=== PATIENT | male | born 1930 | race Caucasian/White ===

== ENCOUNTER 2016-12-30 21:58 | Inpatient (IN) | payer OTHER ==
[~2016-12-30] VITALS: Ht 177.8 cm; Wt 69.8 kg
--- NOTE | 2016-12-30 22:33 | NUR ---
PT [facility], PT PLACED ON GURNEY WITH NO INCIDENT. PT BROUGHT IN FOR S/P FALL WITH SYNCOPE EPISODE, PT STS NO LOC. PT HAS NO OBVIOUS DEFORMITIES, BOTH LEGS ARE ARE EVEN WITH NO SHORTENING, PMSC'S ARE INTACT. PT IS A/O X 4 AND IS ABLE TO MAKE HIS NEEDS KN
[2016-12-30 23:05] LABS: BASOPHIL % 0.4 % (0-2)
[2016-12-30 23:14] LABS: CALCIUM 7.6 mg/dL (8.5-10.1); CARBON DIOXIDE 25.4 mmol/L (21-32); CHLORIDE SERUM 107 mmol/L (98-107); GLUCOSE SERUM 155 mg/dL (74-106); POTASSIUM SERUM 4.4 mmol/L (3.5-5.1); SODIUM SERUM 140 mmol/L (136-145)
[2016-12-30 23:18] LABS: PLATELET COUNT 126 x10^3mcL (130-400); RED CELL DISTRIBUTION WIDTH 15.1 % (11.5-14.5)
[2016-12-30 23:19] LABS: ALKALINE PHOSPHATASE 27 U/L (46-116); ALT/SGPT 15 U/L (16-63); AST/SGOT 15 U/L (15-37); BILIRUBIN TOTAL 0.3 mg/dL (0.20-1.00)
[2016-12-30 23:20] LABS: ALBUMIN 2.7 g/dL (3.4-5.0); TOTAL PROTEIN, SERUM 5.3 g/dL (6.4-8.2)
[2016-12-30 23:21] LABS: CHOLESTEROL 108 mg/dL (<200)
--- NOTE | 2016-12-30 23:35 | NUR ---
PT IN ED IN POSITION OF COMFORT, CONVERSING WITH FAMILY, SEEN SMILING. RESP E/U
--- NOTE | 2016-12-30 23:38 | NUR ---
MD AT BEDSIDE WITH PTS TO DISCUSS RESULTS
[2016-12-31] MEDS ORDERED: ATENOLOL25 MG PO (00:24)
[2016-12-31] MEDS ORDERED: DILANTIN100 MG PO (00:25)
[2016-12-31] MEDS ORDERED: NEU300 PO (00:28)
[2016-12-31] MEDS ORDERED: TERAZOSIN HCL2 MG PO (00:29)
[2016-12-31] MEDS ORDERED: SYNTHROID0.088 MG PO (00:29)
[2016-12-31] MEDS ORDERED: DITROPAN XL10 MG PO (00:30)
[2016-12-31] MEDS ORDERED: NOR10 PO (00:31)
[2016-12-31] MEDS ORDERED: PRAVASTATIN SOD40 M1 PO (00:31)
[2016-12-31] MEDS ORDERED: ZESTRIL20 MG PO (00:32)
[2016-12-31] MEDS ORDERED: ASPIR 8181 MG PO (00:33)
[2016-12-31] MEDS ORDERED: POTASSIUM CHLO20 ME1 PO (00:34)
[2016-12-31] MEDS ORDERED: FUROSEMIDE20 MG PO (00:35)
[2016-12-31] MEDS ORDERED: BACLOFEN10 MG PO (00:36)
[2016-12-31] MEDS ORDERED: ACYCLOVIR200 MG (00:37)
--- NOTE | 2016-12-31 00:38 | NUR ---
REPORT GIVEN TO BONIFACIO HDZ. ALL QUESTIONS AND AND CONCERNS ADDRESSED.
--- NOTE | 2016-12-31 01:03 | NUR ---
RECEIVED PT FROM ED VIA [facility], CAME IN DUE TO S/P FALL. AAOX4. DENIES HEADACHE/DIZZINESS. LEFT HAND FLOORPERSON IS STRONGER THAN THE RIGHT. NO FACIAL DROOP NOTED. NO SOB NOTED. DENIES CHEST PAIN/PRESSURE, NSR ON THE MONITOR. DENIES ABDOMINAL DISCOMFORT. C/O LEFT HIP PAIN ON MOVEMENT. W/ SCATTERED DARK DISCOLORATIONS ON BUE. SIDE RAILS UPX2. CALL LIGHT ON REACH. ENDORSED
[2016-12-31 01:12] VITALS: BP 122/48
[2016-12-31 01:16] VITALS: BP 122/48
[2016-12-31 01:21] VITALS: Ht 177.8 cm; Wt 69.8 kg
--- NOTE | 2016-12-31 01:40 | NUR ---
RECEIVED PT FROM ER VIA [facility] ACCOMPANIED WITH NURSE, EMT AND FAMILY MEMBERS, PT SEEN, ALERT AND ORIENTED, DENIES HEADACHE OR DIZZINESS, RT SIDE WEAKNESS DUE TO HISTORY OF STROKE, SZ PRECAUTION IN PLACE, BREATHING EVEN AND UNLABORED ON ROOM AIR, ON TELE#27 NSB WITH PAC'S, DENIES CHEST PAIN, PROTONIX GIVEN VIA IVP, IVF INFUSING WELL, PULSES PALPABLE, NO EDEMA NOTED, GENERALIZED WEAKNESS DUE TO S/P FALL AT HOME, PT USES WALKER AND CANE AT HOME, ABD SOFT AND FLAT WITH ACTIVE BS, NO BM AT THIS TIME, INCONTIENT AT TIMES, NO DISTRESS NOTED, WILL KEEP TO MONITOR.
[2016-12-31 02:21] LABS: MAGNESIUM 2.1 mg/dL (1.8-2.4); PHOSPHOROUS 3.1 mg/dL (2.5-4.9)
[2016-12-31 02:31] LABS: FREE T4 1.08 ng/dL (0.76-1.46); FREE THYROXINE INDEX 2.8 ug/dL (1.4-4.5); T4(THYROXINE) 7.6 ug/dL (4.7-13.3)
[2016-12-31 05:00] LABS: microscopic required? NO
[2016-12-31 05:26] LABS: UA SPECIFIC GRAVITY 1.015 (1.005-1.035)
[2016-12-31 05:27] LABS: urine erythrocyte NEGATIVE (NEGATIVE)
--- NOTE | 2016-12-31 06:05 | NUR ---
PT ASLEEP BUT EASILY AROUSABLE, SLEPT FAIRLY AFTER ADMIITED TO THE UNIT, IVF INFUSING WELL, DENIES ANY PAIN OR DISCOMFORT WHILE RESTING IN BED, CONDITION NO CHANGE, NO DISTRESS NOTED, WILL KEEP TO MONITOR.
[2016-12-31 06:15] VITALS: BP 99/41
[2016-12-31 07:53] VITALS: BP 117/48
[2016-12-31 08:17] LABS: CARBON DIOXIDE 27.7 mmol/L (21-32); CHLORIDE SERUM 111 mmol/L (98-107); CREATININE SERUM 0.9 mg/dL (0.7-1.3); GLUCOSE SERUM 87 mg/dL (74-106); POTASSIUM SERUM 4.9 mmol/L (3.5-5.1); SODIUM SERUM 140 mmol/L (136-145)
[2016-12-31 08:35] LABS: BASOPHIL % 0.4 % (0-2)
[2016-12-31 08:36] LABS: PLATELET COUNT 125 x10^3mcL (130-400); RED CELL DISTRIBUTION WIDTH 15.5 % (11.5-14.5)
[2016-12-31 08:38] LABS: T3 TOTAL 0.85 ng/mL
--- NOTE | 2016-12-31 08:55 | NUR ---
RECEIVED CALL FROM DR SAM TO OBTAIN CONSENT FOR EGD SCHEDULED FOR 12:45pm.
--- NOTE | 2016-12-31 09:05 | NUR ---
LITIGATION SERVICES MANAGER AT BEDSIDE FOR US CAROTID.
--- NOTE | 2016-12-31 09:15 | NUR ---
DR SUNG MADE AWARE OF BP MEDICATIONS DUE, NOTIFIED CURRENT BP 117/48 MAP 88 [address] TRAN TO HOLD LASIX, LISINOPRIL, AND ATENOLOL. CHELSEA TO GIVE AMLODIPINE. STUDENT NURSE AND INSTRUCTOR MADE AWARE, WILL PASS MEDS.
--- NOTE | 2016-12-31 09:55 | NUR ---
CONSENT OBTAINED FOR EGD. PREOP CHECKLIST DONE. PATIENT RESTING COMFORTABLY ON BED, NO DISTRESS NOTED.
--- NOTE | 2016-12-31 11:53 | NUR ---
[facility] WIPES PROVIDED AND PATIENT WIPED DOWN FOR PREOP.
--- NOTE | 2016-12-31 12:05 | NUR ---
PATIENT LEAVING UNIT VIA BED, SL. GOING DOWN FOR EGD PROCEDURE. NO SIGN OF DISTRESS.
--- NOTE | 2016-12-31 13:34 | NUR ---
PATIENT BACK FROM EGD, A/O AND RESPONSIVE. DENIES ANY SOB/PAIN/DISCOMFORT. PER REPORT, LENA TEST POSITIVE AND POSTOP DX GASTRIC ULCER. IV FLUIDS RESUMED TO RFA IV SITE WNL. VISITORS AT BEDSIDE. WILL CONT TO MONITOR.
[2016-12-31 16:57] VITALS: BP 116/47
--- NOTE | 2016-12-31 17:03 | NUR ---
PATIENT WITH VISITOR AT BEDSIDE. NO DISTRESS NOTED AND DENIES ANY ABD DISCOMFORT AT THIS TIME.
--- NOTE | 2016-12-31 19:30 | NUR ---
PT SEEN, RESTING IN BED, FAMILY AT BEDSIDE, ALERT AND ORIENTED, DENIES HEADACHE OR DIZZINESS, HX OF CVA AND SZ, RT SIDE WEAKNESS, SZ PRECAUTION IN PLACE, ON TELE#27 NSR, DENIES CHEST PAIN, IVF INFUSING WELL, PULSES PALPABLE, NO EDEMA NOTED, GENERALIZED WEAKNESS, S/P FALL AT HOME, C/O OF LEFT HIP PAIN WHILE WALKING AND MOVING, ABD SOFT AND FLAT WITH ACTIVE BS, NO BM AT THIS TIME, CLEAR LIQUID DIET TOLERATED WELL, NO N&V NOTED, VOIDING FREELY, DISCOLORATION TO BUE, BANDADIS TO LEFT KNEE DUE SCRATCHES S/P FALL, NO DISTRESS NOTED, WILL KEEP TO MONITOR.
[2016-12-31 21:48] VITALS: BP 122/50
--- NOTE | 2017-01-01 | NUR ---
PT HAD EPISODE OF INCONTIENT, BATH GIVEN.
--- NOTE | 2017-01-01 02:00 | NUR ---
ROUNDS MADE, PT ASLEEP BUT EASILY AROUSABLE, IVF INFUSING WELL, NO DISTRESS NOTED, WILL KEEP TO MONITOR.
--- NOTE | 2017-01-01 05:46 | NUR ---
PT ASLEEP BUT EASILY AROUSABLE, SLEPT MOST OF NIGHT, IVF INFUSING WELL, CLEAR LIQUID DIET TOLERATED WELL, EPISODES OF INCONTINENT, PT CHANGED AND CLEANED, CONDITION NO CHANGE, NO DISTRESS NOTED, WILL KEEP TO MONITOR.
[2017-01-01 06:23] VITALS: BP 111/47
--- NOTE | 2017-01-01 07:20 | NUR ---
PT RECEIVED. PATIENT IS AAOX3. CALM DEMEANOR. PATIENT HAS SOME RIGHT SIDED WEAKNESS DUE TO HX OF STROKE. NO FACIAL DROOP PRESENT. SEIZURE PRECAUTIONS DUE TO HX OF SEIZURES IN THE PAST. PATIENT IS ON CARDIAC TELE MONITOR 27. SCDS ARE IN PLACE. RESPIRATIONS ARE EVEN AND UNLABORED ON ROOM AIR. NO SOB IS PRESENT. BS ACTIVE. PT USES URINAL BUT IS OCCASIONALLY INCONTINENT AT TIMES. DENIES PAIN AT THIS TIME. DENIES N/V. IV INFUSING IN RFA AT 100ML/HR, WNL. CALL LIGHT WITHIN REACH. ALL SAFETY PRECAUTIONS IN PLACE.
[2017-01-01 07:36] LABS: BASOPHIL % 0.6 % (0-2)
[2017-01-01 07:38] LABS: PLATELET COUNT 123 x10^3mcL (130-400); RED CELL DISTRIBUTION WIDTH 15.5 % (11.5-14.5)
--- NOTE | 2017-01-01 08:50 | NUR ---
PT C/O SHAKING IN HIS RIGHT HAND AND STATES THAT HE IS HAVING DIFFICULTY RAISING HIS RIGHT LEG. PATIENT HAS FULL SENSATION IN BOTH RIGHT LEG AND RIGHT HAND. PULSES ARE WNL. PHYSICIAN NOTIFIED. WILL AWAIT NEW ORDERS.
[2017-01-01 10:12] VITALS: BP 122/40
--- NOTE | 2017-01-01 12:00 | NUR ---
PT IS CONCERNED ABOUT HIS INSURANCE COVERAGE FOR THE HOSPITAL STAY. PHYSICIAN HAS BEEN NOTIFIED. STATES THAT A MAGNET PLACER CONSULT WILL BE ORDERED. WILL MONITOR FOR NEW ORDERS. ALL SAFETY MEASURES IN PLACE. CALL LIGHT WITHIN REACH.
[2017-01-01 13:22] VITALS: BP 97/39
--- NOTE | 2017-01-01 15:00 | NUR ---
PT IS RESTING IN BED CURRENTLY. NO SIGNS OF ACUTE DISTRESS. RESPIRATIONS EVEN AND UNLABORED ON ROOM AIR. NO SOB NOTED. DENIES PAIN AT THIS TIME. PATIENT STATES THAT A [employer] EXCHANGE ADMINISTRATOR SPOKE TO HIM AND THAT HE IS SATISFIED AND THAT ALL OF HIS QUESTIONS HAVE BEEN ANSWERED. PATIENT DENIES ANY NEEDS AT THIS TIME. ALL SAFETY PRECAUTIONS IN PLACE. WILL CONTINUE TO MONITOR.
--- NOTE | 2017-01-01 16:19 | NUR ---
PHYSICAL THERAPY DAILY NOTES CO-SIGN All documentation done by the Donkey Doctor/student for 01/01/17 has been reviewed. I agree with the documentation. Reviewed/Co-Signed by: Jessica Obrien PT Documentation Done by:POLY ANDERSON SPTA POC REVIEWED W/ CONTACT FINGER ASSEMBLER,SPTA; WILL BENEFIT W/ P.T. AFTER ACUTE STAY PRIOR TO RETURNING HOME ALONE; EPISODES OF BALANCE DEFICIT DURING DYNAMIC ACTIVITY, ABLE TO REGAIN BALANCE W/ ASSIST, TENDS TO BE OVERCONFIDENT W/ CAPABILITIES, H/O FALLS; EMHASIS ON STRENGTHENING PROGRAM, SAFE GAIT PROGRESSION, FALL PREVENTION TECH; Pt STATES HE GOES TO GYM ([employer]) PRIOR TO THIS ADMISSION.
--- NOTE | 2017-01-01 18:05 | NUR ---
PT IS CURRENTLY RESTING IN BED AFTER EATING. APPETITE IS NORMAL, NO C/O ABD PAIN. AT THIS TIME THE PATIENT HAS NO SIGNS OF ACUTE DISTRESS. DENIES PAIN. RESPIRATIONS EVEN AND UNLABORED ON ROOM AIR. WILL CONTINUE TO MONITOR PATIENT AND ENDORSE AT SHIFT CHANGE.
[2017-01-01 18:26] VITALS: BP 103/46
--- NOTE | 2017-01-01 19:52 | NUR ---
REC'D PT FROM DAY NURSE. ROMEO PREC IN PLACE. AAOX4, SPEECH CLEAR, FOLLOWS COMMANDS, PERRLA. R SIDED WEAKNESS. NO SIGNS OF DISTRESS NOTED. BREATHING EVEN/UNLABORED ON RA. ON TELE 27. DENIES CP, DIZZINESS, OR PALPITATIONS. NO EDEMA NOTED. DENIES ABD PAIN, TENDERNESS, OR N/V. VOIDING FREELY. IN CONTINENT AT TIMES. C/O RLE "HARD" PAIN 11/09. WILL GIVE TYLENOL PER REQUEST. WEAKNESS TO RLE, UNABLE TO LIFT LEG. BUE ECCHYMOSIS. SMALL WOUND TO L KNEE WITH DRAINAGE TO BANDAIDSX2. REMOVED AND APPLIED ISLAND DRESSING. CALL LIGHT WITHIN REACH, BED AT LOWEST POSITION. WILL CONTINUE TO MONITOR.
[2017-01-01 21:40] VITALS: BP 100/48
--- NOTE | 2017-01-02 02:13 | NUR ---
PT RESTING IN BED WITH EYES CLOSED. LAYING SUPINE IN LOW JEAN BAPTISTE'S POSITION. NO SIGNS OF DISTRESS NOTED. BREATHING EVEN/UNLABORED ON RA. CALL LIGHT WITHIN REACH, BED AT LOWEST POSITION. WILL CONTINUE TO MONITOR.
[2017-01-02 06:12] LABS: CALCIUM 7.9 mg/dL (8.5-10.1); CARBON DIOXIDE 28.6 mmol/L (21-32); CHLORIDE SERUM 114 mmol/L (98-107); CREATININE SERUM 0.9 mg/dL (0.7-1.3); GLUCOSE SERUM 96 mg/dL (74-106); MAGNESIUM 2.1 mg/dL (1.8-2.4); PHOSPHOROUS 3.1 mg/dL (2.5-4.9); POTASSIUM SERUM 3.5 mmol/L (3.5-5.1); SODIUM SERUM 147 mmol/L (136-145)
--- NOTE | 2017-01-02 06:59 | NUR ---
PT AWAKE, RESTING IN BED. NO SIGNS OF DISTRESS NOTED. BREATHING EVEN/UNLABORED ON RA. C/O BACK PAIN 11/09. TYLENOL GIVEN PER REQUEST. NO SIGNFICANT CHANGES DURING SHIFT. PT STILL HAS WEAKNESS TO RLE, NO NEURO CHANGES. WILL ENDORSE TO DAY NURSE.
[2017-01-02 07:02] VITALS: BP 118/39
[2017-01-02 07:03] LABS: BASOPHIL % 0.4 % (0-2); PLATELET COUNT 131 x10^3mcL (130-400)
[2017-01-02 07:06] LABS: RED CELL DISTRIBUTION WIDTH 15.3 % (11.5-14.5)
--- NOTE | 2017-01-02 07:15 | NUR ---
RECEIVED PT. IN BED A/A/O X4. NO SOB, NO N/V NOTED. DENIES ANY PAIN AT THIS TIME. NS RUNNING AT 100 CC/HR. VIA IV H/L AT R FA. SCD TO BLE MAINTAINED. BED IN LOW POS., CALL LIGHT WITHIN REACH. SIDE RAILS UP X3.
--- NOTE | 2017-01-02 08:40 | NUR ---
DR. MERLOS, THE RESIDENTS, CHARGE NURSE, AND ATTENDING NURSE AT BEDSIDE. CAREPLAN DISCUSSED WITH PT. ALL QUESTIONS ANSWERED.
--- NOTE | 2017-01-02 09:00 | NUR ---
TELE. MONITOR #27 REMOVED AND RETURNED TO TELE. MONITOR STATION PER PHYSICIAN'S ORDER. PT. IS MED-SURG. STATUS NOW.
[2017-01-02 10:30] VITALS: BP 124/53
--- NOTE | 2017-01-02 13:00 | NUR ---
REPORTED H/H () TO Erwin PARRY (DO AMERICAN HISTORY TEACHER). NO FURTHER ORDER RECEIVED AT THIS TIME.
--- NOTE | 2017-01-02 16:20 | NUR ---
PHYSICAL THERAPY DAILY NOTES CO-SIGN All documentation done by the Ripening Room Hand for 01/02/17 has been reviewed. I agree with the documentation. I CONCUR W/BENCH INSPECTOR NOTE; CONT PER TX PLAN Reviewed/Co-Signed by: Rosy Malone V PT Documentation Done by: PUNEET CANCINO BENCH INSPECTOR
[2017-01-02 18:28] VITALS: BP 138/55
--- NOTE | 2017-01-02 18:48 | NUR ---
REMAINS IN STABLE CONDITION AT THIS TIME. NO ACUTE DISTRESS NOTED.
--- NOTE | 2017-01-02 19:41 | NUR ---
PT IS AAOX4, MED/SURG PATIENT. THE LUNG SOUNDS ARE CTA ON RA. ABD IS SOFT, ROUND, NON-TENDER. THE PT HAS AN IV IN THE RFA INFUSING 100 ML/HR NS. THE BED IS IN THE LOWEST POSITION AND THE CALL LIGHT IS WITHIN REACH. WILL CONTINUE TO MONITOR.
[2017-01-02 20:50] VITALS: BP 129/58
--- NOTE | 2017-01-03 05:32 | NUR ---
PT IS RESTING COMFORTBLY IN BED. ALL NEEDS HAVE BEEN MET THROUGHOUT THE NIGHT. BED IN LOWEST POSITION AND THE CALL LIGHT IS WITHIN REACH. WILL ENDORSE TO MORNING SHIFT.
[2017-01-03 06:05] VITALS: BP 127/82
[2017-01-03 07:02] LABS: CALCIUM 7.8 mg/dL (8.5-10.1); CARBON DIOXIDE 28.6 mmol/L (21-32); CHLORIDE SERUM 112 mmol/L (98-107); CREATININE SERUM 0.8 mg/dL (0.7-1.3); GLUCOSE SERUM 89 mg/dL (74-106); MAGNESIUM 1.9 mg/dL (1.8-2.4); PHOSPHOROUS 3.2 mg/dL (2.5-4.9); POTASSIUM SERUM 3.5 mmol/L (3.5-5.1); SODIUM SERUM 146 mmol/L (136-145)
--- NOTE | 2017-01-03 07:20 | NUR ---
PT RECEIVED. AT THIS TIME THE PATIENT IS RESTING IN BED. AAOX4. APPEARS CALM. NO SOB, NO C/O CHEST PAIN, NO FACIAL DROOP NOTED. PATIENT IS A MED SURG PATIENT, NO TELE MONITOR. SCDS IN PLACE. PATIENT RESPRIATIONS ARE EVEN AND UNLABORED ON ROOM AIR. NO SIGNS OF RESPIRATORY DISTRESS. PATIENT HAS WEAKNESS IN HIS RIGHT LOWER EXTREMITY. PATIENT HAS ABRASION IN LEFT KNEE. NORMAL SALINE INFUSING PER ORDER IN RFA, IV WNL.
[2017-01-03 09:15] VITALS: BP 153/65
--- NOTE | 2017-01-03 12:00 | NUR ---
PATIENT IS RESTING IN BED CURRENTLY. DENIES PAIN. PATIENT DOES NOT APPEAR IN ACUTE DISTRESS. RESPIRATIONS ARE EVEN AND UNLABORED ON ROOM AIR. IV INFUSING PER ORDER, APPEARS WNL. WILL CONTINUE TO MONITOR. ALL SAFETY MEASURES IN PLACE.
--- NOTE | 2017-01-03 18:00 | NUR ---
EXISTING IV IN RIGHT FOREARM WAS REMOVED DUE TO LEAKING. IV WAS REMOVED INTACT, SITE WAS COVERED WITH STERILE GAUZE AND TAPE AND PRESSURE WAS APPLIED FOR 2 MINUTES. NEW 20G IV WAS INSERTED IN THE RIGHT FOREARM. PATIENT TOLERATED PROCEDURE WELL. IV IS PATENT AND INFUSING WELL.
[2017-01-03 18:14] VITALS: BP 115/51
--- NOTE | 2017-01-03 19:16 | NUR ---
REPORT GIVEN TO NIGHT NURSE. AT THIS TIME THE PATIENT IS RESTING IN BED. IV INFUSING PER ORDER. NO ACUTE CHANGES TO PATIENT CONDITION. PATIENT DENIES SOB, DENIES PAIN. RESPIRATIONS EVEN AND UNLABORED ON ROOM AIR. CALL LIGHT WITHIN REACH. ALL SAFETY MEASURES IN PLACE.
--- NOTE | 2017-01-03 19:20 | NUR ---
THE PT IS AAOX4. PT IS MED/SURG PT DENIES ANY CP. LUNG SOUNDS ARE CTA ON RA. ABD IS SOFT, ROUND, NON-TENDER. IV IN THE RFA INFUSING 100 ML/HR NS. THE BED IS IN THE LOWEST POSITION AND THE CALL LIGHT IS WITHIN REACH. WILL CONTINUE TO MONITOR.
[2017-01-03 22:55] VITALS: BP 118/53
--- NOTE | 2017-01-04 06:02 | NUR ---
ASSISTED PT TO [facility] [place], [place] WHERE HE ATTEMPTED TO HAVE A BM. PT IS REQUESTING A LAXATIVE. PAGEGATED DR. ELIAS ABOUT THE MATTER.
--- NOTE | 2017-01-04 06:25 | NUR ---
PT IS RESTING IN BED. ALL NEEDS HAVE BEEN MET THROUGHOUT THE NIGHT. BED IN LOWEST POSITION. CALL LIGHT WITHIN REACH. WILL ENDORSE TO MORNING NURSE.
[2017-01-04 06:28] VITALS: BP 140/44
[2017-01-04 07:05] LABS: CALCIUM 7.9 mg/dL (8.5-10.1); CARBON DIOXIDE 24.6 mmol/L (21-32); CHLORIDE SERUM 110 mmol/L (98-107); CREATININE SERUM 1.1 mg/dL (0.7-1.3); GLUCOSE SERUM 133 mg/dL (74-106); MAGNESIUM 1.7 mg/dL (1.8-2.4); PHOSPHOROUS 3.1 mg/dL (2.5-4.9); SODIUM SERUM 143 mmol/L (136-145)
[2017-01-04 07:21] LABS: POTASSIUM SERUM 2.9 mmol/L (3.5-5.1)
--- NOTE | 2017-01-04 07:36 | NUR ---
CRITICAL VALUE K 2.9 CALLED IN FROM LAB, WILL NOTIFY RESIDENT DURING ROUNDS.
--- NOTE | 2017-01-04 07:38 | NUR ---
A+OX4, HAD ONE LARGE BLACK, SOFT BM, BED LINENS CHANGED, NO RESPIRATORY DISTRESS NOTED, PULSES MODERATE AND EQUAL CECI, NO EDEMA PRESENT, LUNG SOUNDS CTA, TOLERATING RA, NO N/V, BOWEL SOUNDS ACTIVE, VOIDING VIA URINAL, GENERALIZED WEAKNESS, RLE WEAKNESS, ABRASION L KNEE, BUE ECCHYMOSIS, SLIGHT REDNESS TO SACRUM, IV IN RFA WITH NS @ 100 ML/HR, SITE WNL, K 2.9, CL 110, CA 7.9, MG 1.7.
--- NOTE | 2017-01-04 08:47 | NUR ---
PT RESTING IN BED, NO RESPIRATORY DISTRESS NOTED, DENIES PAIN, NAUSEA, SOB, AND HEADACHE.
--- NOTE | 2017-01-04 10:07 | NUR ---
PT RESTING IN BED, NO RESPIRATORY DISTRESS NOTED, HAD 1 LARGE BLACK SOFT BM, BED LINENS CHANGED, DENIES PAIN, NAUSEA, SOB, AND HEADACHE, SON AT BEDSIDE.
[2017-01-04 10:27] VITALS: BP 142/60
--- NOTE | 2017-01-04 11:16 | NUR ---
PT RESTING IN BED, NO RESPIRATORY DISTRESS NOTED, FAMILY AT BEDSIDE.
[2017-01-04] MEDS ORDERED: BIA500 PO (12:01)
[2017-01-04] MEDS ORDERED: AMO500 PO (12:01)
[2017-01-04] MEDS ORDERED: MECLIZINE HCL12.5 MG PO (12:02)
[2017-01-04] MEDS ORDERED: OSCD PO (12:02)
[2017-01-04] MEDS ORDERED: PRI20 PO (12:03)
--- NOTE | 2017-01-04 12:34 | NUR ---
GAVE REPORT ON PT TO JOHNY BENSON RN.
[2017-01-04 13:07] VITALS: BP 142/60
--- NOTE | 2017-01-04 13:20 | NUR ---
PT RESTING IN BED, NO RESPIRATORY DISTRESS NOTED, DENIES PAIN, NAUSEA, SOB, AND HEADACHE, SON AT BEDSIDE.
--- NOTE | 2017-01-04 13:28 | NUR ---
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 Wt: 154 lb, 70 kg. BMI: 22.1 kg/m2 (Normal) IBW: 166 lb, 75 kg. %IBW: 93%. UBW: 154 lb, 70 kg Age: 86 Y/O M Food Allergies: None Skin: Abrasion L knee, BUE ecchymosis, mild redness to sacrum. Isidro 19. Edema: None GI: Active bowel sounds. Last BM x1 01/04. Large black soft BM. Pt found with disorder of ANS with near syncope likely secondary to cerebral hypoperfusion due to symptomatic anemia due to GI bleed, acute GI bleed, guiac positive in ED per doctor's notes. Per doctor's progress note 01/04, awaiting placement at SNF on Wednesday for ongoing PT, pt states that his L hip pain is getting better. Pt was seen resting in bed, daughter and visitor at bedside. Pt stated that he has good PO intakes, tolerating diet well with no chewing/swallowing issues. Daughter stated that found placement for pt, and pt will be discharging this evening. Problem with: N: None. V: None. D: None. C: None. Problems with: Chewing: None. Swallowing: None. Current Appetite: Good Recent Weight Change: None per pt. % Weight Change: N/A Vitamin/Supplement use: None Diet at Home: Regular Physical Activity: Walks, Limited Education: Pt declined when RD offered Estimated Nutritional Needs Based CBW 154 lb, 70 kg. Energy: 8351-9142 kcal/day (25-30 kcal/kg for Maintenance) Protein: 70-84 gm/day (1-1.2 gm/kg for Repletion) Fluids: 2100 ml/day (30 ml/kg for Maintenance) or per doctor Nutrition Diagnosis No nutrition problem at this time Intervention 1. Continue Cardiac diet per doctor. Monitor/Evaluate Goal: PO intakes to meet >75% of estimated needs Monitor: PO intakes, tolerance to diet, labs, skin integrity, GI function F/U in 7 days as LOW risk (01/11)
--- NOTE | 2017-01-04 14:11 | NUR ---
PT AND SON GIVEN DISCHARGE INFORMATION AND VERBALIZED UNDERSTANDING.
--- NOTE | 2017-01-04 14:57 | NUR ---
PT RESTING IN BED, NO RESPIRATORY DISTRESS NOTED, PINK GOWN AND BLANKET PLACED ON PT FOR TRANSFER, IV LEFT IN RFA AT REQUEST OF JOHNY BENSON.
--- NOTE | 2017-01-04 15:20 | NUR ---
REPORT GIVEN TO TRANSFER NETWORK SECURITY OFFICER, PT OFF UNIT VIA [facility] TO BE TRANSFERED TO [facility].
== END 2017-01-04 15:30 | DRG 377 ==
LOC: ED 21:58 → DU 23:51 → MU 01-02 08:46
PROVIDERS: Internal Medicine; Specialist; ADMIT Family Medicine
PROC: 0W3P8ZZ Control Bleeding in Gastrointestinal Tract, Via Natural or Artificial Opening Endoscopic (ICD-10-PCS; principal; 2016-12-31 12:30)
PROC: 0DB68ZX Excision of Stomach, Via Natural or Artificial Opening Endoscopic, Diagnostic (ICD-10-PCS; 2016-12-31 12:30)
DX: K25.0 Acute gastric ulcer with hemorrhage (principal); N17.0 Acute kidney failure with tubular necrosis; E43 Unspecified severe protein-calorie malnutrition; D62 Acute posthemorrhagic anemia; I69.351 Hemiplegia and hemiparesis following cerebral infarction affecting right dominant side; K29.70 Gastritis, unspecified, without bleeding; B96.81 Helicobacter pylori [H. pylori] as the cause of diseases classified elsewhere; K72.90 Hepatic failure, unspecified without coma; G62.9 Polyneuropathy, unspecified; G40.909 Epilepsy, unspecified, not intractable, without status epilepticus; N32.81 Overactive bladder; I10 Essential (primary) hypertension; I25.10 Atherosclerotic heart disease of native coronary artery without angina pectoris; E03.9 Hypothyroidism, unspecified; F41.9 Anxiety disorder, unspecified; E78.5 Hyperlipidemia, unspecified; Z68.24 Body mass index [BMI] 24.0-24.9, adult; Z95.5 Presence of coronary angioplasty implant and graft; Z79.82 Long term (current) use of aspirin
CPT/HCPCS: 43235; 82962; 83880; 84439; 97110-GP; 97116-GP; 97530-GP; C9113; G0480; J1200; J1610; J2250; J2310; J2916; J3010; J3480; J3490; J7030; Q0092

== ENCOUNTER 2018-10-24 23:37 | Observation (INO) | payer OTHER ==
[~2018-10-24] VITALS: Ht 167.6 cm; Wt 72.6 kg
[~2018-10-24 23:37] MED LIST: ACYCLOVIR200 MG; AMO500 PO; ASPIR 8181 MG PO; ATENOLOL25 MG PO; BACLOFEN10 MG PO; BIA500 PO; DILANTIN100 MG PO; DITROPAN XL10 MG PO; FUROSEMIDE20 MG PO; MECLIZINE HCL12.5 MG PO; NEU300 PO; NOR10 PO; OSCD PO; POTASSIUM CHLO20 ME1 PO; PRAVASTATIN SOD40 M1 PO; PRI20 PO; SYNTHROID0.088 MG PO; TERAZOSIN HCL2 MG PO; ZESTRIL20 MG PO
[2018-10-24 23:48] VITALS: Ht 167.6 cm; Wt 72.6 kg
[2018-10-25 00:24] LABS: BASOPHIL % 0.6 % (0-2); PLATELET COUNT 148 x10^3mcL (130-400); RED CELL DISTRIBUTION WIDTH 14.4 % (11.5-14.5)
[2018-10-25 00:37] LABS: CALCIUM 8.1 mg/dL (8.5-10.1); CARBON DIOXIDE 27.1 mmol/L (21-32); CHLORIDE SERUM 105 mmol/L (98-107); CREATININE SERUM 1.1 mg/dL (0.7-1.3); GLUCOSE SERUM 125 mg/dL (74-106); POTASSIUM SERUM 3.8 mmol/L (3.5-5.1); SODIUM SERUM 139 mmol/L (136-145)
[2018-10-25 00:42] LABS: ALBUMIN 3.4 g/dL (3.4-5.0); ALKALINE PHOSPHATASE 53 U/L (46-116); ALT/SGPT 19 U/L (16-63); AST/SGOT 17 U/L (15-37); BILIRUBIN TOTAL 0.5 mg/dL (0.20-1.00); TOTAL PROTEIN, SERUM 6.7 g/dL (6.4-8.2)
[2018-10-25 03:05] VITALS: BP 177/71
[2018-10-25 05:42] VITALS: BP 137/65
[2018-10-25 06:58] LABS: BASOPHIL % 0.6 % (0-2); PLATELET COUNT 158 x10^3mcL (130-400); RED CELL DISTRIBUTION WIDTH 14.2 % (11.5-14.5)
[2018-10-25 07:14] LABS: ALBUMIN 3.7 g/dL (3.4-5.0); ALKALINE PHOSPHATASE 61 U/L (46-116); ALT/SGPT 14 U/L (16-63); AST/SGOT 17 U/L (15-37); BILIRUBIN TOTAL 0.61 mg/dL (0.20-1.00); CALCIUM 9.3 mg/dL (8.5-10.1); CARBON DIOXIDE 26.3 mmol/L (21-32); CHLORIDE SERUM 105 mmol/L (98-107); CREATININE SERUM 1.1 mg/dL (0.7-1.3); GLUCOSE SERUM 104 mg/dL (74-106); MAGNESIUM 2.5 mg/dL (1.8-2.4); POTASSIUM SERUM 3.6 mmol/L (3.5-5.1); SODIUM SERUM 142 mmol/L (136-145); TOTAL PROTEIN, SERUM 7.3 g/dL (6.4-8.2)
[2018-10-25 09:26] VITALS: BP 122/52
[2018-10-25 13:03] VITALS: BP 130/57
[2018-10-25 13:16] VITALS: BP 130/57
== END 2018-10-25 13:54 | disposition home or self-care (01) | DRG 291 ==
LOC: ED 23:37 → DU 10-25 01:36
PROVIDERS: Emergency Medicine; ADMIT Internal Medicine Pulmonary Disease
DX: I11.0 Hypertensive heart disease with heart failure (principal); J18.9 Pneumonia, unspecified organism; I50.43 Acute on chronic combined systolic (congestive) and diastolic (congestive) heart failure; I35.0 Nonrheumatic aortic (valve) stenosis; E78.5 Hyperlipidemia, unspecified; E03.9 Hypothyroidism, unspecified; Z86.73 Personal history of transient ischemic attack (TIA), and cerebral infarction without residual deficits; Z91.14 Patient's other noncompliance with medication regimen
CPT/HCPCS: 83880; G0378; J1940; J2543; Q0092